=== PATIENT | male | born 1970 | race Caucasian/White ===

== ENCOUNTER → 2017-02-01 | Outpatient (CLI) | payer BC ==
[2017-02-01 09:20] LABS: BASOPHILS # (AUTO) 0.06 10*3/UL; BASOPHILS % (AUTO) 1.1 % (0-1); EOSINOPHILS # (AUTO) 0.09 10*3/UL; EOSINOPHILS % (AUTO) 1.7 % (0-8); HEMATOCRIT 46.6 % (42.0-52.0); HEMOGLOBIN 16.3 g/dL (14.0-18.0); LYMPHOCYTES # (AUTO) 2.23 10*3/uL; MEAN CORPUSCULAR HEMOGLOBIN 29.6 PG (27-31); MEAN CORPUSCULAR VOLUME 84.7 FL (80-90); MEAN PLATELET VOLUME 9.5 FL (7.4-12.2); MONOCYTES # (AUTO) 0.56 10*3/UL (0.3-0.8); MONOCYTES % (AUTO) 10.7 % (5-15); NEUTROPHILS # (AUTO) 2.27 10*3/UL; NEUTROPHILS % (AUTO) 43.6 % (50-80)
[2017-02-01 09:21] LABS: PLATELET MORPHOLOGY COMMENT NORMAL MORPHOLOGY (NORM); RBC MORPHOLOGY COMMENT NORMAL MORPHOLOGY (NORM); WBC MORPHOLOGY COMMENT NORMAL MORPHOLOGY (NORM)
[2017-02-01 09:40] LABS: BLOOD UREA NITROGEN 11 mg/dL (7-22); CALCIUM 9.2 mg/dL (8.7-10.7); EST GLOMERULAR FILTRATION > 60 (>60 ml/min/1.73m(2)); SERUM ALBUMIN 4.1 g/dL (3.5-4.8)
[2017-02-01 09:41] LABS: CHOL/HDL RATIO 6.31 RATIO (0-4.0); HDL CHOLESTEROL 35 mg/dL (40-150); SERUM CHOLESTEROL 221 mg/dL (120-200)
--- NOTE | 2017-02-01 09:55 | EKG ---
[address] [address] Measurements Intervals [place] Rate: 62 P: 39 TX: 184 QRS: 33 QRSD: 95 T: 37 QT: 408 QTc: 413 Interpretive Statements SINUS RHYTHM No previous ECG available for comparison Electronically Signed On 02-01-17 18:22:40 MDT by Deonte Washington [id number]
== END ==
LOC: EKG 08:57
PROVIDERS: ATTEND Nurse Practitioner
DX: I10 Essential (primary) hypertension (principal); E78.5 Hyperlipidemia, unspecified; R00.2 Palpitations; R51 Headache; R07.9 Chest pain, unspecified; F43.23 Adjustment disorder with mixed anxiety and depressed mood; F17.200 Nicotine dependence, unspecified, uncomplicated
CPT/HCPCS: 36415; 80053; 80061; 82306; 84443; 85025; 93005; 93010